=== PATIENT | male | born 1940 | race Caucasian/White ===

== ENCOUNTER 2020-10-26 09:37 | Emergency (ER) | payer OTHER ==
[2020-10-29 08:31] LABS: SARS-CoV-2 NAA NOT DETECTED
== END 2020-10-26 10:01 | disposition home or self-care (01) ==
LOC: JVIRT 09:37
DX: Z11.52 Encounter for screening for COVID-19 (principal)
CPT/HCPCS: C9803; Q3014-GT; U0003; U0005